=== PATIENT | male | born 1935 | race Caucasian/White ===

== ENCOUNTER 2022-07-30 10:28 | Inpatient (IN) | payer MEDICARE, MEDICAID ==
[2022-07-30] MEDS ORDERED: Sodium Chloride 0.9% 10 ML Syringe FLUSH PRN ×3 (11:06→11:25)
[2022-07-30] MEDS ORDERED: Sodium Chloride 0.9% 1,000 ML IV ONE (11:06)
[2022-07-30] MEDS ORDERED: HYDROmorphone 0.5 MG/0.5 ML Syringe IVPUSH ONE (11:22)
[2022-07-30] MEDS ORDERED: Ondansetron 4 MG/2 ML SDV IVPUSH ONE (11:22)
[2022-07-30] MEDS ORDERED: Iopamidol 612 MG/ML 100 ML Bottle IVPUSH ONE (11:25)
[2022-07-30 11:37] LABS: ESTIMATED GFR 20 mL/min (>60)
[2022-07-30] MEDS ORDERED: cefTRIAXone 2 GM in Sodium Chloride 0.9% 100 ML IV ONE (12:12)
[2022-07-30 12:13] LABS: CORONAVIRUS COVID-19 NAA NEGATIVE (NEGATIVE)
[2022-07-30] MEDS: Sodium Chloride 0.9% 1,000 ML IV SCH ×3 (12:20→16:31)
[2022-07-30] MEDS ORDERED: Ondansetron 4 MG/2 ML SDV IV PRN (13:23)
[2022-07-30] MEDS ORDERED: HYDROmorphone 0.5 MG/0.5 ML Syringe IVPUSH PRN (13:23)
[2022-07-30] MEDS ORDERED: LORazepam 2 MG/ML SDV IVPUSH PRN (13:25)
[2022-07-30 13:58] VITALS: BP 84/49; PULSE 103
[2022-07-30] MEDS ORDERED: oxyCODONE 5 MG Tab PO PRN (14:11)
== END 2022-07-30 17:39 | disposition expired | DRG 951 ==
LOC: JD.ED 10:28 → JD.MS 13:21
PROVIDERS: ADMIT Internal Medicine; ATTEND Internal Medicine
DX: Z51.5 Encounter for palliative care (principal); J96.21 Acute and chronic respiratory failure with hypoxia; A41.9 Sepsis, unspecified organism; R65.21 Severe sepsis with septic shock; K55.9 Vascular disorder of intestine, unspecified; N17.9 Acute kidney failure, unspecified; Z66 Do not resuscitate; Z20.822 Contact with and (suspected) exposure to COVID-19; I50.9 Heart failure, unspecified; M54.59 Other low back pain; M25.569 Pain in unspecified knee; I46.9 Cardiac arrest, cause unspecified; I27.20 Pulmonary hypertension, unspecified; G89.29 Other chronic pain; K63.89 Other specified diseases of intestine; R77.8 Other specified abnormalities of plasma proteins; R79.82 Elevated C-reactive protein (CRP); I48.91 Unspecified atrial fibrillation; G47.30 Sleep apnea, unspecified; I95.89 Other hypotension; F79 Unspecified intellectual disabilities; Z90.89 Acquired absence of other organs; Z98.890 Other specified postprocedural states; Z99.81 Dependence on supplemental oxygen; Z79.01 Long term (current) use of anticoagulants; Z90.79 Acquired absence of other genital organ(s); Z79.1 Long term (current) use of non-steroidal anti-inflammatories (NSAID); Z79.82 Long term (current) use of aspirin; Z79.899 Other long term (current) drug therapy; Z79.52 Long term (current) use of systemic steroids; Z95.1 Presence of aortocoronary bypass graft
CPT/HCPCS: 0241U; 36415; 71045; 74176; 80053; 82977; 83605; 83690; 83735; 84484; 85025; 85610; 86140; 87040; 93005; 96361; 96365; 96375; 99285; 93010; 99235; J0696; J1170; J2405; J3490; J7030